=== PATIENT | female | born 1955 | race African-American/Black ===

== ENCOUNTER → 2025-06-16 | Day surgery (SDC) | payer MEDICARE ==
[2025-06-11 11:46] LABS: BASOPHILS % 0.3 % (0.0-1.0); EOSINOPHILS % 1.8 % (0.0-6.0); LYMPHOCYTES % 13.4 % (18.0-39.1); MONOCYTES % 7.5 % (4.4-11.3); NEUTROPHILS % 76.7 % (38.7-80.0); RED CELL DISTRIBUTION WIDTH 16.1 % (11.7-14.4)
[2025-06-11 12:13] LABS: INR 1.07
[~2025-06-16] MED LIST: ALLOPURINOL200 MG PO; ASPIRIN81 MG PO; BENICAR20 MG PO; CLONIDINE HCL0.1 MG PO; COQ1050 MG PO; COREG12.5 MG PO; FARXIGA5 MG PO; FENTANYL CITRATE/PF 100MCG/2 ML INJ ONE; GLYCOPYRROLATE INJ 0.2 MG/ML VIAL ONE; LIDOCAINE HCL 2% LOCAL INJ 5 ML SDV VIAL INJ ONE; NEURONTIN300 MG PO; NIFEDIPINE ER30 M1 PO; NOVOLOG FLEX PEN PO; NOVOLOG FLEX PEN SQ; OMEPRAZOLE40 MG PO; PLAVIX75 MG PO; POTASSIUM CHLO20 ME1 PO; PROPOFOL IV EMULSION 10 MG/ML 20 ML VIAL ONE; ROSUVASTATIN CA10 MG PO; SYNTHROID125 MCG PO; TORSEMIDE20 MG PO; TOUJEO SOL300 UNIT/1 SQ; VITAMIN B121000 MCG PO; VITAMIN C500 MG PO; VITAMIN D3125 MCG PO
[2025-06-16] MEDS: LACTATED RINGER'S 1,000 ML ONE (06:25)
[2025-06-16 06:53] LABS: EST GLOMERULAR FILTRATION RATE 30.0 ML/MIN (>=60)
[2025-06-16 08:29] VITALS: TEMP 97.4
[2025-06-16 08:45] VITALS: BP 143/67; PULSE 74; RESP 16; O2SAT 100
== END | disposition home or self-care (01) ==
LOC: OR 05:15
PROVIDERS: ATTEND Internal Medicine Gastroenterology
DX: K21.9 Gastro-esophageal reflux disease without esophagitis (principal); K29.50 Unspecified chronic gastritis without bleeding; D3A.8 Other benign neuroendocrine tumors; K31.89 Other diseases of stomach and duodenum; D64.9 Anemia, unspecified; G47.33 Obstructive sleep apnea (adult) (pediatric); E11.22 Type 2 diabetes mellitus with diabetic chronic kidney disease; I12.9 Hypertensive chronic kidney disease with stage 1 through stage 4 chronic kidney disease, or unspecified chronic kidney disease; N18.30 Chronic kidney disease, stage 3 unspecified; I25.810 Atherosclerosis of coronary artery bypass graft(s) without angina pectoris; I49.3 Ventricular premature depolarization; I45.10 Unspecified right bundle-branch block; E66.01 Morbid (severe) obesity due to excess calories; Z78.9 Other specified health status; E03.9 Hypothyroidism, unspecified; G89.29 Other chronic pain; M19.90 Unspecified osteoarthritis, unspecified site; Z88.6 Allergy status to analgesic agent; Z01.810 Encounter for preprocedural cardiovascular examination; Z01.812 Encounter for preprocedural laboratory examination; Z79.02 Long term (current) use of antithrombotics/antiplatelets; Z79.82 Long term (current) use of aspirin; Z79.84 Long term (current) use of oral hypoglycemic drugs; Z79.4 Long term (current) use of insulin; Z79.899 Other long term (current) drug therapy; Z68.43 Body mass index [BMI] 50.0-59.9, adult; Z95.1 Presence of aortocoronary bypass graft
CPT/HCPCS: 36415 ×2; 43239; 80048; 82948; 85025; 85610; 85730; 93005; J2003; J2704; J3010; J7121